=== PATIENT | female | born 1985 | race Caucasian/White ===

== ENCOUNTER 2019-10-24 18:07 | Emergency (ER) | payer BC ==
[~2019-10-24] VITALS: Ht 167.6 cm; Wt 59.0 kg
[2019-10-24] MEDS ORDERED: IBUPROFEN 600MG TABLET PO ONE (23:00)
[2019-10-24 23:12] LABS: CHLORIDE 106 mEq/L (98-107)
[2019-10-24 23:46] LABS: BASOPHILS % 0.8 % (0.0-2.0); EOSINOPHILS % 1.7 % (0.0-5.0); HEMATOCRIT. 36.2 % (36.0-48.0); HEMOGLOBIN. 11.6 g/dL (12.0-16.0); LYMPHOCYTES % 49.8 % (20.0-50.0); MEAN CORPUSCULAR HEMOGLOBIN 20.5 pg (28.0-32.0); MEAN CORPUSCULAR VOLUME 64.2 fL (81.0-99.0); MEAN PLATELET VOLUME 10.1 fl (7.4-10.4); MONOCYTES % 9.7 % (2.0-8.0); PLATELET 292 x1000/uL (130-400); RED BLOOD CELL COUNT 5.63 mill/uL (4.2-5.4); RED CELL DISTRIBUTION WIDTH 21.1 % (11.6-14.6)
[2019-10-24 23:48] LABS: PLATELET ESTIMATE NORMAL
[2019-10-25] MEDS ORDERED: SODIUM CHLORIDE 0.9% 1,000 ML IV ONE (00:10)
[2019-10-25 02:20] VITALS: BP 104/63
[2019-10-25] MEDS ORDERED: IOHEXOL-350 100 ML BOTTLE ONE (04:35)
== END 2019-10-25 04:28 | disposition home or self-care (01) ==
LOC: ER 18:07
DX: M94.0 Chondrocostal junction syndrome [Tietze] (principal)
CPT/HCPCS: 36415; 71045; 71275; 80048; 84484; 85025; 85379; 93005; 99284; Q9967; Z7610